=== PATIENT | male | born 1970 | race Caucasian/White ===

== ENCOUNTER → 2016-08-06 | Outpatient (CLI) | payer OTHER ==
--- NOTE | ~2016-08-06 | MR145 ---
[facility] A Service of [facility] RADIOLOGY TEXT RESULTS PATIENT: ARIES SHEETS LOCATION: [facility] : 66 UNIT #: [id number] AGE: [address]: Ruth Ann Farley APRN SEX: M ORDER DR: [id number] [address] [address] [id number] MR#: [id number] Acc #: [id number] NAME: ARIES SHEETS : 1970 SEX: M STUDY DATE/TIME: 08/06/2016 8:45 UNIT: [facility] ROOM: STUDY DESCRIPTION: MR MRCP WWo Contrast Attending Physician: Ruth Ann Farley Aprn Referring Physician: Ruth Ann Farley Aprn Ordering Physician: Ruth Ann Farley Aprn Primary Care Physician: Elba Young M.D. [facility]ENTER REPORT This report is preliminary unless electronic signature is present. EXAM MRI INDICATIONS Abnormal ultrasound. Dilated common bile duct. Atypical chest pain and abdominal pain for 1 year. TECHNIQUE Multiplanar MRI of the abdomen with and without IV contrast (20 mL MultiHance IV contrast). Thin and thick slab MRCP sequences were obtained. COMPARISON Right upper quadrant ultrasound 06/26/[address] of the chest dated 10/18/2015. FINDINGS There is severe hepatic steatosis. The liver is enlarged measuring 17-18 cm in length. No hepatic mass is identified. The intrahepatic and extrahepatic bile ducts are normal in caliber on today's exam. The common duct measures 4 mm at the sage hepatis. There is a large 3 cm gallstone in the gallbladder neck. This was not identified by the business center manager in the patient's right quadrant ultrasound. There is no gallbladder distension, gallbladder wall thickening, or pericholecystic inflammation. There is generalized atrophy of the pancreas. Spleen, adrenal glands and kidneys are within normal limits. The bowel is not dilated. IMPRESSION 1. Hepatic steatosis and mild hepatomegaly. 2. Normal MRCP. The intrahepatic and extrahepatic bile ducts are normal on today's exam. No choledocholithiasis. [facility] A Service of [facility] RADIOLOGY TEXT RESULTS PATIENT: ARIES SHEETS LOCATION: [facility] : 66 UNIT #: [id number] AGE: [address]: Ruth Ann Farley APRN SEX: M ORDER DR: 3. Cholelithiasis. Dictated by... Hema Iniguez M.D. THIS IS AN ELECTRONICALLY VERIFIED REPORT Hema Iniguez M.D. at 08/07/2016 6:43 PM ELIO/missael TD: 08/07/2016 18:05 JOB #: [id number] MRI CENTER REPORT Page 1 of 1
== END | disposition home or self-care (01) ==
LOC: SMRI 07:53
DX: R07.89 Other chest pain (principal); R93.8 Abnormal findings on diagnostic imaging of other specified body structures; K80.20 Calculus of gallbladder without cholecystitis without obstruction; K76.0 Fatty (change of) liver, not elsewhere classified; R16.0 Hepatomegaly, not elsewhere classified
CPT/HCPCS: 74183; A9581